=== PATIENT | female | born 1975 | race Caucasian/White ===

== ENCOUNTER 2021-03-28 05:42 | Inpatient (IN) | payer BC, SELFPAY ==
[2021-03-28] MEDS ORDERED: Ondansetron PF 4 MG/2 ML Vial IVP PRN (05:53)
[2021-03-28] MEDS ORDERED: Acetaminophen 500 MG TAB PO PRN (05:57)
[2021-03-28 06:13] LABS: #Eosinphils 0.2 thou/uL (0.0-0.7); #Lymphocytes 2.5 thou/uL (1.20-3.40); #Monocytes 0.5 thou/uL (0.11-0.59); #Neutrophils 4.4 thou/uL (1.40-6.50); %Basophils 0.4 % (0.0-1.0); %Monocytes 6.1 % (0.0-10.0); %Neutrophils 57.5 % (42.0-75.0); Hemoglobin 11.5 g/dL (12.0-16.0); Mean Corpuscular HGB CONC 33.8 g/dL (32.0-36.0); Mean Corpuscular Hemoglobin 29.5 pg (27.0-31.0); Mean Corpuscular Volume 87.3 fL (78.0-98.0); Mean Platelet Volume 6.3 fL (7.4-10.4); Platelet Count 227 thou/uL (130-400); RBC Distribution Width 12.2 % (11.5-14.5); Red Blood Cell (RBC) Count 3.89 mill/uL (4.20-5.40); White Blood Cell (WBC) Count 7.7 thou/uL (4.8-10.8)
[2021-03-28 06:33] VITALS: BMI 29.7
[2021-03-28 06:37] LABS: ALT (SGPT) 35 U/L (8-55); AST (SGOT) 33 U/L (5-34); Albumin 3.3 g/dL (3.5-5.0); Alkaline Phosphatase 76 U/L (40-110); Anion Gap 7 mmol/L (10-20); BUN (Urea Nitrogen) 10 mg/dL (7.0-18.7); Bilirubin, Total 0.2 mg/dL (0.2-1.2); Calc. Creatinine Clearance 118 mL/min (70-130); Calcium 8.3 mg/dL (7.8-10.44); Carbon Dioxide 28 mmol/L (22-29); Chloride 107 mmol/L (98-107); Globulin 2.4 g/dL (2.4-3.5); Glucose 97 mg/dL (70-105); Magnesium 1.9 mg/dL (1.6-2.6); Potassium 4.2 mmol/L (3.5-5.1); Protein, Total 5.7 g/dL (6.0-8.3); Sodium 138 mmol/L (136-145)
[2021-03-28] MEDS ORDERED: Sodium Chloride 0.9% 500 ML IVPB SCH (06:45)
[2021-03-28] MEDS: Multivitamins, Adult 10 ML, Folic Acid 1 MG, Thiamine HCl 100 MG in Dextrose 5 %-0.45 %... IV SCH (07:42)
[2021-03-28] MEDS ORDERED: Lorazepam 2 MG/ML VIAL SLOW IVP PRN (07:55)
[2021-03-28] MEDS: Sodium Chloride 0.9% 1,000 ML IV SCH ×4 (08:00→23:04)
[2021-03-28] MEDS: Promethazine HCl 25 MG/ML VIAL IM PRN (12:10)
[2021-03-28] MEDS: chlordiazePOXIDE HCl 25 MG CAP PO SCH ×3 (12:17→19:43)
[2021-03-28] MEDS: Famotidine 20 MG TAB PO SCH ×2 (12:17→19:41)
[2021-03-28] MEDS: Enoxaparin Sodium 40 MG/0.4 ML SYRINGE SC SCH (12:17)
[2021-03-28] MEDS ORDERED: Lorazepam 2 MG/ML VIAL SLOW IVP SCH (16:15)
[2021-03-28 16:59] LABS: Bacteria/HPF None Seen HPF (None Seen); Bilirubin Negative (Negative); Blood, Urine Negative (Negative); Clarity Clear (Clear); Glucose, Urine (Dipstick) Normal (Negative); Ketone, Urine Negative (Negative); Leukocyte Negative Leu/uL (Negative); Nitrite Negative (Negative); Protein, Urine (Dipstick) Negative (Neg-Trace); RBC/HPF 0-3 HPF (0-3); Specific Gravity, Urine 1.009 (1.002-1.036); Squamous Epithelial 0-3 HPF (0-3); Urobilinogen Normal mg/dL (Less than 2); WBC/HPF 0-3 HPF (0-3)
[2021-03-28 17:04] LABS: Urine Culture Reflex No No
[2021-03-28] MEDS: cefTRIAXone\\ROCEPHIN 1 GM in Sodium Chloride 0.9% 100 ML IVPB SCH (17:05)
[2021-03-28] MEDS: Gabapentin 300 MG CAP PO SCH (19:42)
[2021-03-28] MEDS: Baclofen 10 MG TAB PO SCH (19:42)
[2021-03-28] MEDS: Lorazepam 2 MG/ML VIAL SLOW IVP PRN (20:30)
[2021-03-29 04:54] LABS: #Basophils 0.1 thou/uL (0.0-0.2); #Eosinphils 0.2 thou/uL (0.0-0.7); #Lymphocytes 1.6 thou/uL (1.20-3.40); #Monocytes 0.5 thou/uL (0.11-0.59); #Neutrophils 4.7 thou/uL (1.40-6.50); %Basophils 0.9 % (0.0-1.0); %Eosinophils 2.8 % (0.0-10.0); %Lymphocytes 23.3 % (21.0-51.0); %Monocytes 6.6 % (0.0-10.0); %Neutrophils 66.4 % (42.0-75.0); Hemoglobin 12.1 g/dL (12.0-16.0); Mean Corpuscular Hemoglobin 29.3 pg (27.0-31.0); Mean Corpuscular Volume 86.3 fL (78.0-98.0); Mean Platelet Volume 6.6 fL (7.4-10.4); Platelet Count 213 thou/uL (130-400); RBC Distribution Width 12.4 % (11.5-14.5); Red Blood Cell (RBC) Count 4.12 mill/uL (4.20-5.40)
[2021-03-29 05:26] LABS: ALT (SGPT) 46 U/L (8-55); AST (SGOT) 58 U/L (5-34); Albumin 3.2 g/dL (3.5-5.0); Alkaline Phosphatase 84 U/L (40-110); Anion Gap 11 mmol/L (10-20); BUN (Urea Nitrogen) 6 mg/dL (7.0-18.7); Bilirubin, Total 0.2 mg/dL (0.2-1.2); Calc. Creatinine Clearance 122 mL/min (70-130); Calcium 8.3 mg/dL (7.8-10.44); Carbon Dioxide 20 mmol/L (22-29); Chloride 111 mmol/L (98-107); Globulin 2.6 g/dL (2.4-3.5); Glucose 115 mg/dL (70-105); Magnesium 1.8 mg/dL (1.6-2.6); Potassium 3.9 mmol/L (3.5-5.1); Protein, Total 5.8 g/dL (6.0-8.3); Sodium 138 mmol/L (136-145)
[2021-03-29] MEDS: Sodium Chloride 0.9% 1,000 ML IV SCH ×3 (05:47→22:14)
[2021-03-29] MEDS: Multivitamin W/ Minerals 1 TAB PO SCH (08:23)
[2021-03-29] MEDS: Promethazine 25 MG TAB PO PRN (08:23)
[2021-03-29] MEDS: Baclofen 10 MG TAB PO SCH ×3 (08:23→22:15)
[2021-03-29] MEDS: Famotidine 20 MG TAB PO SCH ×2 (08:24→22:16)
[2021-03-29] MEDS: Folic Acid 1 MG TAB PO SCH (08:24)
[2021-03-29] MEDS: Gabapentin 300 MG CAP PO SCH ×3 (08:24→22:18)
[2021-03-29] MEDS: Enoxaparin Sodium 40 MG/0.4 ML SYRINGE SC SCH (08:24)
[2021-03-29] MEDS: chlordiazePOXIDE HCl 25 MG CAP PO SCH (08:36)
[2021-03-29] MEDS: Lorazepam 2 MG/ML VIAL SLOW IVP PRN (08:38)
[2021-03-29] MEDS: Multivitamins, Adult 10 ML, Folic Acid 1 MG, Thiamine HCl 100 MG in Dextrose 5 %-0.45 %... IV SCH (09:50)
[2021-03-29] MEDS ORDERED: Diazepam 5 MG TAB PO SCH (13:15)
[2021-03-29] MEDS: Ibuprofen 800 MG TAB PO PRN (13:25)
[2021-03-29] MEDS: Diazepam 5 MG TAB PO SCH ×2 (15:37→22:16)
[2021-03-29 16:33] LABS: Pregnancy Test - Urine (BHCG) Negative (Negative); Pregu Control Background? CLEAR/WHITE (CLR/WHITE); Pregu Control Bar Appear? YES (CONTROL BAR); Specific Gravity 1.009 (1.002-1.036)
[2021-03-29] MEDS: cefTRIAXone\\ROCEPHIN 1 GM in Sodium Chloride 0.9% 100 ML IVPB SCH (17:20)
[2021-03-29] MEDS ORDERED: Promethazine 25 MG TAB ONE (21:28)
[2021-03-29] MEDS ORDERED: Promethazine HCl 25 MG/ML VIAL ONE (21:32)
[2021-03-29] MEDS: Promethazine HCl 25 MG/ML VIAL IM PRN (22:07)
[2021-03-30] MEDS: Promethazine HCl 25 MG/ML VIAL IM PRN (05:01)
[2021-03-30] MEDS: Sodium Chloride 0.9% 1,000 ML IV SCH ×3 (05:02→22:58)
[2021-03-30] MEDS: Ibuprofen 800 MG TAB PO PRN (05:03)
[2021-03-30 05:11] LABS: #Eosinphils 0.3 thou/uL (0.0-0.7); #Lymphocytes 1.7 thou/uL (1.20-3.40); #Monocytes 0.7 thou/uL (0.11-0.59); #Neutrophils 6.3 thou/uL (1.40-6.50); %Basophils 0.5 % (0.0-1.0); %Eosinophils 2.8 % (0.0-10.0); %Lymphocytes 18.6 % (21.0-51.0); %Monocytes 7.7 % (0.0-10.0); %Neutrophils 70.4 % (42.0-75.0); Hemoglobin 12.3 g/dL (12.0-16.0); Mean Corpuscular HGB CONC 34.2 g/dL (32.0-36.0); Mean Corpuscular Hemoglobin 29.9 pg (27.0-31.0); Mean Corpuscular Volume 87.2 fL (78.0-98.0); Mean Platelet Volume 6.7 fL (7.4-10.4); Platelet Count 193 thou/uL (130-400); RBC Distribution Width 12.5 % (11.5-14.5); Red Blood Cell (RBC) Count 4.13 mill/uL (4.20-5.40); White Blood Cell (WBC) Count 8.9 thou/uL (4.8-10.8)
[2021-03-30 05:44] LABS: ALT (SGPT) 60 U/L (8-55); AST (SGOT) 66 U/L (5-34); Albumin 3.2 g/dL (3.5-5.0); Alkaline Phosphatase 73 U/L (40-110); Anion Gap 11 mmol/L (10-20); BUN (Urea Nitrogen) 4 mg/dL (7.0-18.7); Bilirubin, Total 0.4 mg/dL (0.2-1.2); Calc. Creatinine Clearance 121 mL/min (70-130); Calcium 8.4 mg/dL (7.8-10.44); Carbon Dioxide 21 mmol/L (22-29); Chloride 111 mmol/L (98-107); Globulin 2.7 g/dL (2.4-3.5); Glucose 84 mg/dL (70-105); Magnesium 1.8 mg/dL (1.6-2.6); Potassium 3.8 mmol/L (3.5-5.1); Protein, Total 5.9 g/dL (6.0-8.3); Sodium 139 mmol/L (136-145)
[2021-03-30] MEDS: Gabapentin 300 MG CAP PO SCH ×3 (09:11→21:26)
[2021-03-30] MEDS: Baclofen 10 MG TAB PO SCH ×3 (09:11→21:26)
[2021-03-30] MEDS: Multivitamin W/ Minerals 1 TAB PO SCH (09:11)
[2021-03-30] MEDS: Diazepam 5 MG TAB PO SCH ×3 (09:11→21:26)
[2021-03-30] MEDS: Famotidine 20 MG TAB PO SCH ×2 (09:11→21:26)
[2021-03-30] MEDS: Folic Acid 1 MG TAB PO SCH (09:11)
[2021-03-30] MEDS: Multivitamins, Adult 10 ML, Folic Acid 1 MG, Thiamine HCl 100 MG in Dextrose 5 %-0.45 %... IV SCH (09:12)
[2021-03-30] MEDS: Enoxaparin Sodium 40 MG/0.4 ML SYRINGE SC SCH (09:13)
[2021-03-30] MEDS ORDERED: Spironolactone 100 MG TAB PO SCH (10:00)
[2021-03-30] MEDS: DULoxetine 60 MG CAP PO SCH ×2 (10:47→21:26)
[2021-03-30] MEDS ORDERED: Ibuprofen 200 MG TAB PO SCH (11:15)
[2021-03-30] MEDS: Lorazepam 2 MG/ML VIAL SLOW IVP PRN ×2 (12:53→20:04)
[2021-03-30] MEDS: Promethazine HCl 25 MG in Sodium Chloride 0.9% 50 ML IVPB PRN ×2 (13:01→21:27)
[2021-03-30] MEDS ORDERED: Gabapentin 300 MG CAP PO SCH (15:00)
[2021-03-30] MEDS: cefTRIAXone\\ROCEPHIN 1 GM in Sodium Chloride 0.9% 100 ML IVPB SCH (17:28)
[2021-03-30] MEDS ORDERED: Dextroamphetamine/Amphetamine [Adderall] 30 MG Tablet PO SCH (21:00)
[2021-03-30] MEDS ORDERED: Non-Formulary Item 1 EACH (Dextroamphetamine/Amphetamine [Adderall] 30 MG Tablet) PO SCH (21:00)
[2021-03-31] MEDS: Ibuprofen 800 MG TAB PO PRN ×2 (00:48→11:50)
[2021-03-31] MEDS: DULoxetine 60 MG CAP PO SCH ×4 (00:48→20:45)
[2021-03-31] MEDS: Sodium Chloride 0.9% 1,000 ML IV SCH ×4 (00:49→22:10)
[2021-03-31 05:51] LABS: ALT (SGPT) 94 U/L (8-55); AST (SGOT) 92 U/L (5-34); Albumin 3.4 g/dL (3.5-5.0); Alkaline Phosphatase 91 U/L (40-110); Anion Gap 10 mmol/L (10-20); BUN (Urea Nitrogen) 5 mg/dL (7.0-18.7); Bilirubin, Total 0.3 mg/dL (0.2-1.2); Calc. Creatinine Clearance 124 mL/min (70-130); Calcium 8.5 mg/dL (7.8-10.44); Carbon Dioxide 20 mmol/L (22-29); Chloride 112 mmol/L (98-107); Globulin 2.8 g/dL (2.4-3.5); Glucose 91 mg/dL (70-105); Magnesium 1.8 mg/dL (1.6-2.6); Potassium 4.1 mmol/L (3.5-5.1); Protein, Total 6.2 g/dL (6.0-8.3); Sodium 138 mmol/L (136-145)
[2021-03-31] MEDS: Enoxaparin Sodium 40 MG/0.4 ML SYRINGE SC SCH (09:01)
[2021-03-31] MEDS: Gabapentin 300 MG CAP PO SCH ×3 (09:02→20:45)
[2021-03-31] MEDS: Multivitamin W/ Minerals 1 TAB PO SCH (09:02)
[2021-03-31] MEDS: Baclofen 10 MG TAB PO SCH ×3 (09:02→20:45)
[2021-03-31] MEDS: Folic Acid 1 MG TAB PO SCH (09:02)
[2021-03-31] MEDS: Diazepam 5 MG TAB PO SCH ×3 (09:03→20:45)
[2021-03-31] MEDS: Spironolactone 100 MG TAB PO SCH (09:03)
[2021-03-31] MEDS: Famotidine 20 MG TAB PO SCH ×2 (09:03→20:45)
[2021-03-31] MEDS: Lorazepam 2 MG/ML VIAL SLOW IVP PRN ×3 (09:44→19:54)
[2021-03-31] MEDS: Multivitamins, Adult 10 ML, Folic Acid 1 MG, Thiamine HCl 100 MG in Dextrose 5 %-0.45 %... IV SCH (11:50)
[2021-03-31] MEDS: cefTRIAXone\\ROCEPHIN 1 GM in Sodium Chloride 0.9% 100 ML IVPB SCH (16:20)
[2021-03-31] MEDS: Promethazine 25 MG TAB PO PRN (20:44)
[2021-04-01] MEDS: Lorazepam 2 MG/ML VIAL SLOW IVP PRN (01:51)
[2021-04-01] MEDS: Promethazine HCl 25 MG in Sodium Chloride 0.9% 50 ML IVPB PRN ×2 (01:53→09:42)
[2021-04-01] MEDS: Multivitamins, Adult 10 ML, Folic Acid 1 MG, Thiamine HCl 100 MG in Dextrose 5 %-0.45 %... IV SCH (08:30)
[2021-04-01] MEDS: Diazepam 5 MG TAB PO SCH ×2 (08:36→14:01)
[2021-04-01] MEDS: Folic Acid 1 MG TAB PO SCH (08:36)
[2021-04-01] MEDS: Famotidine 20 MG TAB PO SCH (08:36)
[2021-04-01] MEDS: Gabapentin 300 MG CAP PO SCH ×2 (08:37→14:01)
[2021-04-01] MEDS: Spironolactone 100 MG TAB PO SCH (08:37)
[2021-04-01] MEDS: Baclofen 10 MG TAB PO SCH (08:37)
[2021-04-01] MEDS: Enoxaparin Sodium 40 MG/0.4 ML SYRINGE SC SCH (08:38)
[2021-04-01] MEDS: DULoxetine 60 MG CAP PO SCH (08:39)
[2021-04-01] MEDS: Sodium Chloride 0.9% 1,000 ML IV SCH (09:01)
[2021-04-01 12:03] VITALS: BP 122/69; TEMP 98.2
== END 2021-04-01 14:05 | disposition short-term general hospital (02) | DRG 897 ==
LOC: CCU 05:42 → 2SW 22:38 → 2SE 03-29 22:12
PROVIDERS: ADMIT Internal Medicine; ATTEND Internal Medicine
PROC: HZ2ZZZZ Detoxification Services for Substance Abuse Treatment (ICD-10-PCS; principal; 2021-03-28)
DX: F10.239 Alcohol dependence with withdrawal, unspecified (principal); Z20.822 Contact with and (suspected) exposure to COVID-19; I95.2 Hypotension due to drugs; T42.6X5A Adverse effect of other antiepileptic and sedative-hypnotic drugs, initial encounter; R00.1 Bradycardia, unspecified; M54.9 Dorsalgia, unspecified; G93.89 Other specified disorders of brain; I10 Essential (primary) hypertension; R56.9 Unspecified convulsions; G89.29 Other chronic pain; Z83.3 Family history of diabetes mellitus; Z82.41 Family history of sudden cardiac death; Z88.1 Allergy status to other antibiotic agents
CPT/HCPCS: 36415; 80053; 81001; 81025; 83735; 84443; 85025; 93005; 93010; 95712; 95715; 95819; 95957; J0696; J1650; J2060; J2550; J3411; J3490; J7030; J7042; Q0169